=== PATIENT | male | born 1965 | race Caucasian/White ===

== ENCOUNTER → 2024-09-06 08:05 | Outpatient (REF) | payer OTHER, SELFPAY | LOC: RAD 08:05 | PROVIDERS: ATTENDING PHYSICIAN Internal Medicine | DX: S89.90XA Unspecified injury of unspecified lower leg, initial encounter (principal) | CPT/HCPCS: 73560 ==

== ENCOUNTER → 2024-09-11 14:23 | Outpatient (REF) | payer OTHER, SELFPAY | LOC: MRI 3T 14:23 | PROVIDERS: ATTENDING PHYSICIAN Internal Medicine | DX: S89.90XA Unspecified injury of unspecified lower leg, initial encounter (principal) | CPT/HCPCS: 73721 ==

== ENCOUNTER 2024-10-23 12:06 | Outpatient (RCR) | payer OTHER, SELFPAY | END 2024-10-23 23:59 | disposition home or self-care (01) | LOC: RPT 12:06 | PROVIDERS: ATTENDING PHYSICIAN Student in an Organized Health Care Education/Training Program; FAMILY PHYSICIAN Internal Medicine | DX: M17.11 Unilateral primary osteoarthritis, right knee (principal); S83.281D Other tear of lateral meniscus, current injury, right knee, subsequent encounter; Z73.6 Limitation of activities due to disability; M94.261 Chondromalacia, right knee; R26.89 Other abnormalities of gait and mobility; M62.81 Muscle weakness (generalized) | CPT/HCPCS: 97110; 97161 ==

== ENCOUNTER 2024-11-19 10:03 | Outpatient (RCR) | payer OTHER, SELFPAY | END 2024-11-19 23:59 | disposition home or self-care (01) | LOC: RPT 10:03 | PROVIDERS: ATTENDING PHYSICIAN Student in an Organized Health Care Education/Training Program; FAMILY PHYSICIAN Internal Medicine | DX: M17.11 Unilateral primary osteoarthritis, right knee (principal); S83.281D Other tear of lateral meniscus, current injury, right knee, subsequent encounter; Z73.6 Limitation of activities due to disability; M94.261 Chondromalacia, right knee; R26.89 Other abnormalities of gait and mobility; M62.81 Muscle weakness (generalized) | CPT/HCPCS: 97110; 97530 ==

== ENCOUNTER 2024-12-08 09:47 | Outpatient (RCR) | payer OTHER, SELFPAY | END 2024-12-08 12:54 | disposition home or self-care (01) | LOC: RPT 09:47 | PROVIDERS: ATTENDING PHYSICIAN Student in an Organized Health Care Education/Training Program; FAMILY PHYSICIAN Internal Medicine | DX: M17.11 Unilateral primary osteoarthritis, right knee (principal); S83.281D Other tear of lateral meniscus, current injury, right knee, subsequent encounter; Z73.6 Limitation of activities due to disability; M94.261 Chondromalacia, right knee; R26.89 Other abnormalities of gait and mobility; M62.81 Muscle weakness (generalized) | CPT/HCPCS: 97110; 97530 ==